=== PATIENT | male | born 1935 | race Caucasian/White ===

== ENCOUNTER 2021-07-21 11:20 | Inpatient (IN) | payer OTHER ==
[~2021-07-21] VITALS: Ht 167.6 cm; Wt 124.3 kg
--- NOTE | ~2021-07-21 | D ---
[facility] [place] [address] DISCHARGE SUMMARY Name: JOSE SCHWARTZ Room #: 527B-B [facility] IN M.R.#: [id number] Admission: 07/21/21 Attend Phys: Compa Herrera DO Discharge: 07/29/21 Date of : 37 Report #: [id number] THIS REPORT FOR: cc: FAM - Family physician unknown FAM - Family physician unknown Compa Herrera DO ~ DATE OF SERVICE: 07/29/2021 INPATIENT PSYCHIATRIC DISCHARGE SUMMARY ATTENDING PSYCHIATRIST: Compa Herrera DO CASE BRIEFER: Tez Mars MD DISCHARGE DIAGNOSES: Major depressive disorder severe ____ improved, mild neurocognitive disorder. Dysphagia with rita aspiration. MEDICAL COMORBIDITIES: Numerous including morbid obesity, hypertension, diabetes mellitus, lower extremity edema, history of paroxysmal atrial fibrillation, history of seizure, resting tremor, groin candidiasis. The patient is discharging to [facility]. Psychiatric and medical care per receiving facility. DISCHARGE DIET: Regular. The patient's family has declined dysphagia intervention in favor of quality of life. ACTIVITY LEVEL: As tolerated. The patient requires 24-hour assistance. DISCHARGE LABORATORY DATA: This admission on 07/25, white count 8.6, H and H 10.3 and 31.2, platelet count 193. Again electrolytes from 07/25, sodium 142, potassium 4.7, chloride 105, bicarbonate 29, anion gap 8, BUN 36, creatinine 1.0, estimated GFR 58, glucose 222. His hemoglobin A1c high at 10.4 on 07/22, calcium 8.6, phosphorus 3.5, magnesium 1.9, AST 14, ALT 23, alkaline phosphatase 90, albumin 2.7. Triglycerides 149, cholesterol 118, LDL 39, HDL 50. TSH 2.876. Folate 18.3. B12 fairly normal at 540. Urinalysis this admission, trace ketones, 3+ glucose as expected. SARS not detected ____. DISCHARGE MEDICATIONS: Digoxin 125 mcg oral daily for atrial fibrillation, terazosin ____ at bedtime for hypertension and BPH, carvedilol 12.5 mg oral twice daily with meals for hypertension, lisinopril 40 mg oral daily for hypertension, primidone 50 mg oral daily for tremor, oxcarbazepine 600 mg oral twice daily for impulse control and seizure concern, Lexapro 10 mg oral daily for depression, memantine 10 mg oral at bedtime for cognitive enhancement. Memantine was prescribed before admission at 400-500 mg oral with meals. The patient has Lantus ____ 15 units at bedtime for diabetes. He has got [address] [address] DISCHARGE SUMMARY Name: LANAJOSE Room #: 527B-B [facility] IN M.R.#: [id number] Admission: 07/21/21 Attend Phys: Compa Herrera DO Discharge: 07/29/21 Date of : 36 Report #: [id number] clotrimazole and nystatin for candidiasis in his inguinal area that should be continued up to 14 days or until resolution and if still not resolved, it should be reevaluated by physician. Vitamin D3 2000 International Units oral daily. REASON FOR ADMISSION: Back on 07/21 or so, 86-year-old obese male transferred to [place] from [facility], the patient had psychiatric consultation there. The patient had an intentional overdose, suicide attempt on aspirin. He was in assisted living and no meds were being administered to him. Family believes he had this from back when he moved into this facility some time ago. HOSPITAL COURSE: The patient was admitted to Geriatric Psychiatry Unit. Overall, the patient's mobility decreased. The patient was frequently demanding ____ at bedside. He was frankly aspirating. At family telephone meetings with his son, Vasu and daughter, Verito who stays in the area and Vasu in [place] ____ given the challenges of getting the patient to ____ dysphagia interventions. The patient is not suicidal, homicidal, felt to be stable for step-down. PHYSICAL EXAMINATION: VITAL SIGNS: Temperature 98.0, pulse is 74, respirations 20, BP 156/53. GENERAL: Large, obese male, seated in Maria G chair, frequently has a towel over his head, not sure why. It is like ____ completely covering his head. MENTAL STATUS EXAMINATION: This is a well-developed, ill-appearing male. Attention and concentration fair. Speech loud. Thought process, focused ____. Denied SI, HI, auditory or visual type hallucinations. Memory not formally tested on the day of discharge. Insight and judgment limited. Mood and affect constricted, congruent. Fund of knowledge average. Prognosis is guarded given his age of 86 and comorbidities. By: 43 41 Compa Herrera, DO /nt
[2021-07-21 20:40] VITALS: BP 137/56
--- NOTE | 2021-07-22 05:10 | NUR ---
RECEIVED REPORT FROM ED RN STEFANY, PT COVID WAS NEG. PT ARRIVED [id number] PT AAOX4, VS 137/56, P 76, R 18, T 97.7, O2 SA 97% RA RR EVEN AND NONLABORED. PT DENIES SI/HI AND PAIN. PT REPORTED FEELING DEPRESSED AND ATTEMTING OD WITH 81MG ASA, AND HE IS FEELING LIKE A BURDEN TO HIS CHILDREN. HCP Apolonia MONREAL, RADIOLOGY PHYSICIAN CONTACTED FOR CONSULT. HCP Mitul BUNCH NP CONSULTED AND ORDERS RECEIVED. PT IS W/CHAIR AND MAX ASSIST. PT HX HTN, A.FIB, PACEMAKER, DM, DEPRESSION, HYPOTHYROID, SEIZURES. FALL PRECAUTIONS PUT IN PLACE. PT HAS RASH IN GROIN AND REDNESS IN BUTTOCKS. PT UE TREMORS, PT REPORTED HE DID NOT HAVE PARKINSON HAD BEEN RULED OUT. LUNCHBOX SNACK WAS GIVEN AND SALES CLERK SUPERVISOR ASSISTED WITH FEEDING, PT REQUIRES ASSISTANCE FOR FEEDING AND SANDWICH WAS CUT INTO FOUR. CHRISTIE MONTESINOS CHARGE NURSE DANIEL CONFIRMED MEDICATION REGIMENT AND DNR AND DANIEL TO FAX DNR PAPERWORK TO [facility]. CALLED LAYNE SCHWARTZ, CALLED TWICE AND LEFT MESSAGE FOR CONSENTS. PT WILL CONTINUE TO BE MONITOR PER [facility] PROTOCOL.
[2021-07-22 06:45] LABS: CHOLESTEROL 118 mg/dL (<200); HDL CHOLESTEROL 50 mg/dL (>40); LDL CHOLESTEROL 39 mg/dL (<100); SERUM ASSESSMENT Clear; TC:HDL 2.4 Ratio (Not establshd); TRIGLYCERIDE 149 mg/dL (<150); VLDL 30 mg/dL (<40)
[2021-07-22 11:38] VITALS: BP 145/51
[2021-07-22 11:42] LABS: HEMATOCRIT 32.6 % (42.0-52.0); HEMOGLOBIN 10.6 gm/dL (14.0-18.0); MCH 29.8 pg (26.0-34.0); MCHC 32.4 g/dL (28.0-37.0); MCV 91.8 fL (80.0-100.0); RBC 3.55 mil/uL (4.50-6.00); RDW 14.2 % (10.5-14.5); WBC 8.8 thou/uL (4.0-11.0)
[2021-07-22 11:51] LABS: CREATININE 1.1 mg/dL (0.7-1.3); POTASSIUM 4.8 mmol/L (3.5-5.1)
[2021-07-22 12:21] LABS: FOLIC ACID 18.3 ng/mL (8.6-58.9)
--- NOTE | 2021-07-22 15:37 | NUR ---
RESUMMED CARE FROM OVERNIGHT SHIFT THIS AM, PATIENT DAY ROOM SITTING QUIET. PATIENT ALERT ORIENTED TO SELF HE DID NOT KNOW THE YEAR, PLACE, OR THE CURRENT PRESIDENT. PATIENT STATED TO ME" HIS MIND IS NOT TOGETHER AND HE CAN'T REMENBER". PATIENTS ABDOMEN SOFT BOWEL SOUNDS PRESENT, PATIENTS LUNGS CLEAR. PATIENT DENIES SI/HI/AH/VH AT PRESENT, PATIENT IS SOMETIMES NEEDY AT TIMES. PATIENT SAT IN GROUP BUT MINIMAL PARTICIPATION PATIENT MET WITH DR TOM AND CREDIT CHARGE AUTHORIZER. PATIENT TOOK MEDICATION WITHOUT INCIDENCE; WILL CONTINUE TO MONITOR PATIENT FOR SAFETY AND BEHAVIORS.
--- NOTE | 2021-07-22 16:02 | NUR ---
07-22-2021--1610--Call to [facility], Vasu Frankel ([phone]). He reports that his father had been residing at [facility] in a two bedroom apartment until his mother about 8 months ago. He then moved to a one bedroom at the same [place]. He stated his father fell about 8 years ago and had a brain anyursim anr was paralyzed on one side. He reports he came back "sort of" but he now has a great correction memory buy his short term memory isn't good. He reports last Monday his recliner broke and he had to rely more on his kids. Patient knows Vasus has terminal CA and he feels this is partly why he felt like he was imposing. He stated they went back to the store where they purchased the broken chair and they had one just like it but it couldn't be delivered until Monday. He reports it was "like the end of the world to him. Someone from [facility] stated they caught him taking the 81 mg aspirins and he had taken approx. 8. He went two days to [facility]. [facility] wanted to send him to [facility]. They instead sent him here. He is agreeable to a family meeting tomorrow 07-23-2021 at 1300.
[2021-07-22 16:55] LABS: URINE BILIRUBIN NEGATIVE (Negative); URINE BLOOD NEGATIVE (Negative); URINE CLARITY CLEAR; URINE COLOR YELLOW; URINE GLUCOSE-RANDOM* 3+ (Negative); URINE KETONES TRACE (Negative); URINE LEUKOCYTES-REFLEX NEGATIVE (Negative); URINE NITRITE-REFLEX NEGATIVE (Negative); URINE PROTEIN (DIPSTICK) NEGATIVE (Negative); URINE UROBILINOGEN 0.2 E.U./dl (0.2-1.0)
[2021-07-22 19:25] VITALS: BP 150/61
[2021-07-22 23:06] LABS: GLYCOHEMOGLOBIN (HGB A1C) 10.4 % (4.8-5.6)
--- NOTE | 2021-07-23 02:43 | NUR ---
PATIENT CARE WAS RESUMED AT 1900. HE WAS SITTING AT THE DINING AREA. ALERT AND ORIENTED WITH SOME FORGRTFULNESS. ABLE TO VERBALIZE HIS NEEDS.CONTINENT OF BOWEL AND BLADDER. HE DENIES PAINS AT THIS TIME. MAX ASSIT WITH TRANSFER AND [facility]ONORA-CARE. NYSTATIN CREAME APPLIED TO HIS GROIN AREAS.BS WAS HIGH AND ONETIME INSULIN WAS ADMINISTERED.LUNGS ARE CLEAR BS ACTIVE X4 QUADS. HE DENIES SI/AVH/HI. F76INTHDUT CHECK IN PLACE. BED IS LOW, LOCKED AND ALARMED. YELLOW SOCKS AND TOP ARE ON
--- NOTE | 2021-07-23 08:28 | NUR ---
New admit to [facility] with SI/depression. Hx DM, HTN. Class III obesity, BMI 44. BG poorly controlled, A1C 10.4, lipids wnl. Folate/B12 wnl. Intake fair for first 2 meals 40-50%. Add carb control to current diet order, otherwise low nutrition risk and will continue to follow at weekly team meetings.
[2021-07-23 11:06] VITALS: BP 154/66
--- NOTE | 2021-07-23 15:04 | NUR ---
Alert and orientated X4. Calm and cooperative at times, other times yelling and demanding. Does adjust behavior when reminded. Denies SI/HI. Breath sounds clear. Reg HR auscultated. Color pink with brisk capillary refill and palpable peripheal pulses. +2 non pitting edema in feet. Resistant to wearing RANDI hose but agreed to put on. Began yelling during group demanding that they be removed. Dr. Herrera agreed for them to be off. Feet elevated with recliner. Yellow urine per toilet and incontinence. Active bowel sounds over large, soft, rounded abdomen. Large soft brown stool X 2. Able to take several steps with transfering but unsteady on feet. Resting in recliner.
[2021-07-23 16:30] VITALS: BP 168/65
[2021-07-23 19:51] VITALS: BP 168/65
--- NOTE | 2021-07-23 21:27 | NUR ---
PATIENT IS MEDICATION COMPLIANT, DENIES HI/SI BUT STILL ADMITS TO SOME DEPRESSION AND ANXIETY. PATIENT AT TIMES IS DEMANDING AND DOES REQUIRE REDIRECTION. PTIENT HAS INSTEADY GAIT AND IS VERY SLOW BUT CAN MOVE FOR A SHORT DISTANCE.
[2021-07-24 07:15] VITALS: BP 142/68
[2021-07-24 07:29] VITALS: BP 142/68
--- NOTE | 2021-07-24 11:19 | NUR ---
Alert and orientated X4. Denies SI/HI and states depression is about the same. Demanding and yelling at staff, at other times sleeping in day room. Breath sounds clear. Reg HR auscultated. Color pale pink with brisk capillary refill and palpable peripheral pulses. Refusing to wear RANDI hose. Yelling that he will not wear them again. Continent of yellow urine per BSC. Active bowel sounds over large rounded abdomen. Erythema and excoritation in inguinal folds, cleaned and nystatin powder applied. Yelling that powder does not work, wants nystatin cream. Able to take few steps with walker to transfer to commode, needs supervision.
[2021-07-24 16:37] VITALS: BP 124/64
[2021-07-24 20:27] VITALS: BP 137/48
--- NOTE | 2021-07-24 22:17 | H ---
[facility] [place] [address] [place] [address] HISTORY AND PHYSICAL Name: JOSE FRANKEL Room #: 521A-A ADM IN M.R.#: [id number] Admission: 07/21/21 Attend Phys: Compa Herrera DO Discharge: Date of : 36 Report #: [id number] THIS REPORT FOR: cc: FAM - Family physician unknown FAM - Family physician unknown Compa Herrera DO ~ DATE OF SERVICE: 07/22/2021 INPATIENT PSYCHIATRIC EVALUATION ATTENDING PSYCHIATRIST: Compa Herrera DO. LOFT WORKER: Marjorie Markham and Kj Ricardo MD and his hospitalist team. SOURCES OF INFORMATION: Interview with the patient, records from [facility], Emergency Room records. His DPOA is not enacted, but is reported to be son, Vasu Frankel in [place] at [phone], his daughter, Cindy Pickett in [place], [place] at [phone]. REASON FOR ADMISSION: Sent out for an intentional overdose on aspirin. HISTORY OF PRESENT ILLNESS: An 86-year-old obese male transfered to [facility] via [facility]. The patient had had a psychiatric consultation there. It states that the patient has history of diabetes, hypertension, hypothyroidism, who presented to the ED after a suicide attempt via intentional ingestion of 8 baby aspirin. He was initially going to be medically admitted, but not medically cleared, hence still in the ED. He was alert and oriented to person, place, situation, partly to time as month and year. The patient states he took aspirin because "I was depressed because of the tremors I have, I'm a burden on my family." States that he thought about overdosing for weeks and had felt more depressed because "I can't drug anymore, so I am a burden." The patient recalled to me as he did to the examiner at [facility], he fell on the ice in and has tremors worse since. His right hand tremor is much worse than his right. He admitted that the overdose was a suicide attempt and he wanted to , but he is glad he survived. He has 2 children, they are very supportive. He feels he is a burden on people, even though no one has expressed this to him. He describes his mood over the last 2 weeks as so-so, but felt mostly depressed and has been worried about multiple medical issues. He has trouble falling and staying asleep, "as the worse part of that is my medical problems. I'd hate that I'd have to get up every hour when I'm sleeping." He thinks he gets 5-6 hours of sleep at the most. He is tired most of the time. He notes that he has to get up and use the restroom several times at night. He denied auditory or visual hallucinations. Denies [address] [place] [address] HISTORY AND PHYSICAL Name: JOSE FRANKEL Room #: 521A-A [facility] IN M.R.#: [id number] Admission: 07/21/21 Attend Phys: Compa Herrera, Discharge: Date of : 36 Report #: [id number] paranoia. Appetite is good. Denies homicidal ideation. He is not sure if he was taking Lexapro, although he thinks he was taking something, for knowledge. He says he likes the alf he lives at, but there is only 1 physician for 700 people. PAST PSYCHIATRIC HISTORY: He saw a psychiatrist many-many years ago, diagnosed with depression. No history of prior suicide attempts. No history of psychotropic medications. his home medication list was Trileptal 450 b.i.d., Lexapro 10 mg daily, melatonin 5 mg at bedtime, Namenda 10 mg at bedtime, used to be on Elavil 25 mg b.i.d., Prozac 20 mg daily. He denied past illicit alcohol use. Remote history of smoking cigarettes and of alcohol on holidays. SOCIAL HISTORY: Lives in a alf, stated "I loved it." His . Both children are supportive. HOME MEDICATIONS: Digoxin 125 mcg daily, terazosin 2 mg p.o. daily, sotalol 80 mg p.o. daily, vitamin D3 2000 international units oral daily, atorvastatin 20 mg oral b.i.d., oxcarbazepine 450 p.o. b.i.d. It does look that some of these were from 2013. More recent meds include lisinopril, pioglitazone, primidone, escitalopram, melatonin, memantine. ALLERGIES: TO ATENOLOL, HYDROCHLOROTHIAZIDE, AMLODIPINE, AND CORTISONE. The patient was diagnosed with major depressive disorder, recurrent, severe without psychosis, unspecified neurocognitive disorder. I recommended resuming Lexapro 5 mg, considering mirtazapine and psychiatric hospitalization. PAST MEDICAL HISTORY: Includes DM2, paroxysmal atrial fibrillation, obstructive sleep apnea, Parkinson's disease, seizure disorder, dyslipidemia and normocytic anemia. On 07/18/2021, sodium 139, potassium 5.1, chloride, I believe this is 102; bicarbonate 23, anion gap 9, random glucose 220, creatinine 1.2, estimated GFR 60, total protein 7.0, albumin 3.0, calcium 3.7, total bilirubin 3.1, AST 18, ALT 26, alkaline phosphatase 106. TSH 3.02. UDS negative. Digoxin level not reported. Acetaminophen negative. Salicylate 3.0. White count 5.58, H and H 10.9 and 33.0, platelet count 225. Urine is negative, nitrites negative mucus strands, rare bacteria. REVIEW OF SYSTEMS: He reported having bilateral inguinal irritation, lower extremity swelling. Otherwise, relatively clean on brief 10-point ROS. [facility] [address] [place] [address] HISTORY AND PHYSICAL Name: SESAR FRANKELERT Room #: 52- ADM IN M.R.#: [id number] Admission: 07/21/21 Attend Phys: Compa Herrera DO Discharge: Date of : 36 Report #: [id number] PHYSICAL EXAMINATION: VITAL SIGNS: Here at [facility], temperature 36.3, pulse 71, respirations 18, BP 145/51, O2 sat 94%. GENERAL: In Maria G chair in hospital gown, complaining of skin pain in his bilateral inguinal region. Laboratories, hematology, H and H 10.6 and 32.6, white count 8.8, platelets 216. Chemistry from 07/22, sodium 143, potassium 4.8, chloride 106, bicarbonate 31, anion gap 6, BUN 26, creatinine 1.1, estimated GFR 64, glucose 293, calcium 9.0. Triglycerides 149, cholesterol 118, LDL 39, HDL 50. B12 540, folate 18.3, TSH 2.876. MEDICATIONS IN THE HOSPITAL: Currently, terazosin 1 mg at bedtime, memantine 10 mg at bedtime, melatonin 22 mg at bedtime, Coreg 12.5 mg p.o. b.i.d. with meals, sotalol 80 mg daily, primidone 50 mg p.o. daily, pioglitazone 15 mg p.o. daily, oxcarbazepine 450 mg p.o. b.i.d., lisinopril 40 mg p.o. daily, Lexapro 10 mg oral daily, digoxin 125 mcg daily, vitamin D 2000 international units daily, loperamide, clonidine 0.2 mg p.o. t.i.d. p.r.n. for hypertensive urgency. Otherwise, house PRNs. MENTAL STATUS EXAMINATION: A well-developed, unkempt male, appearing his stated age. Attention fair. Concentration fair. Speech, normal rate and tone. Thought process, linear and goal directed. Thought content, focused on ameliorating his situation. Denied SI. Denied auditory, visual, or tactile hallucinations. Memory, not formally tested. There is some historical mild neurocognitive disorder. Insight and judgment limited. Fund of knowledge, at least average. FORMULATION: An 86-year-old male brought in status post intentional aspirin overdose, resides at nursing facility. DIAGNOSES: Major depressive disorder, recurrent, severe degree, Mild neurocognitive disorder. Medical comorbidities include hypertension, atrial fibrillation, status post pacemaker; history of seizures, diabetes mellitus type 2, dyslipidemia, hypothyroidism, bilateral tremors, upper extremities. He also has lower extremity swelling. PLAN: Admitted voluntarily to [facility]. We will reduce his melatonin. He is on 10 mg daily Lexapro that was increased from recommendations of [facility]. We will continue other medications he is actively on, see how his mood goes in the next couple of days. [facility] [address] [place] [address] HISTORY AND PHYSICAL Name: JOSE FRANKEL Room #: 521A-A ADM IN M.R.#: [id number] Admission: 07/21/21 Attend Phys: Compa Herrera DO Discharge: Date of : 36 Report #: [id number] Time spent on this case at least 60 minutes, greater than 50% of time reviewing records and coordination of care. He is a full code. strengths: insured, has placement weaknesses: advanced agea, multiple morbidities, poor mobility <ELECTRONICALLY SIGNED> By: Compa Herrera DO 07/24/21 2217 [id number] Compa Herrera DO /nt
--- NOTE | 2021-07-25 00:15 | NUR ---
PATIENT HAS BEEN OUT IN DAY ROOM THIS EVENING, DEMANDING AT TIMES WANTING IMMEDIATE GRATIFICATION. PATIENT IS MEDICATION COMPLIANT. PATIENT HAS BEEN CONTINENT THE LAST COUPLE OF NIGHT, CALLING AND ASKING FOR URIANL OR BEDPAN.
[2021-07-25 05:26] LABS: ABSOLUTE NEUTROPHILS 5.4 thou/uL (1.4-8.2); BASOPHILS 0.4 % (0.0-2.0); EOSINOPHILS 4.7 % (0.0-3.0); HEMATOCRIT 31.2 % (42.0-52.0); HEMOGLOBIN 10.2 gm/dL (14.0-18.0); LYMPHOCYTES 24.9 % (24.0-44.0); MCH 29.8 pg (26.0-34.0); MCHC 32.7 g/dL (28.0-37.0); MCV 91.1 fL (80.0-100.0); MONOCYTES 7.5 % (1.0-8.0); PLATELET COUNT 193 thou/uL (150-400); POLYS 62.5 % (36.0-66.0); RBC 3.42 mil/uL (4.50-6.00); RDW 14.2 % (10.5-14.5); WBC 8.6 thou/uL (4.0-11.0)
[2021-07-25 05:41] LABS: ALBUMIN 2.7 g/dL (3.4-5.0); CALCIUM 8.6 mg/dL (8.5-10.1); CREATININE 1.2 mg/dL (0.7-1.3); MAGNESIUM 1.9 mg/dL (1.8-2.4); PHOSPHORUS 3.5 mg/dL (2.5-4.9); POTASSIUM 4.7 mmol/L (3.5-5.1); TOTAL BILIRUBIN 0.1 mg/dL (0.2-1.0); TOTAL PROTEIN 6.4 g/dL (6.4-8.2)
[2021-07-25 10:40] VITALS: BP 129/45
[2021-07-25 12:48] VITALS: BP 129/45
--- NOTE | 2021-07-25 17:20 | NUR ---
Assumed care from overnight shift this am. Client was in activity area, and expressed need to be toileted before breakfast. Client stated that he needed to both urinate and defecate at this time. Client was assisted by this staff, and supervisor wool shearing staff to commode. Client presented irritable at this time, and stated that he was unable to help with his toileting needs when asked to hold on to sides of commode or chair as client is two person assist. Per previous report of client's facility and family, client is ambulatory, but client has been uncooperative with cares, and relies heavily on staff despite being able to do ADLs with moderate independence. Client proceeded to stay on toilet, and requested both commode and urinal at this time. Client was given both, and requested that staff hold urinal. Client was encouraged to hold urinal by himself as client does not have insufficiency with hand strength. Client did this at this time. Client procceeded to stay on commode for over ten minutes, but could not defacate. 200 mL of urine were noted for output. Client then yelled at staff to "get me off of here before I get up- I'll get up I swear" although staff was present. Staff assisted client to wipe private area and applied barrier cream to backside as redness was noted. During assessment, client presented alert to self and situation. Client did not voice any suicidal or homicidal ideation, and did not voice any visual or audio hallucinations. Client denied any depression and anxiety. Lung sounds were clear and bowel sounds present, though oxygen was at 95% upon recheck by FARROWING WORKER, which appears to be baseline for client per previous checks. No difficulty breathing noted. Client was then taken to activity area again. Client stayed in acitivty area for thirty minutes to eat breakfast before requesting to be toileted again. Client yelled "you better take me or I'll pee in my pants" "take me now." Client was encouraged to communicate needs, but to not yell at staff. Client once again threatened to get out of chair and go himself despite staff taking him to toilet but needing to take breaks off of chair first. Client was toileted, had a BM, and urinated slightly. Barrier cream applied to buttocks. Client given one time stat order of lantus [address] Murray along with regular insulin due to elevated glucose at 314 in am. Client refused newly prescribed clotri cream at this time, as he had other creams for itching. Client once again toileted before dinner. During this time, client refused to hold urinal, and urinated on floor. Client was once again encouraged to make needs known at this time. Client also had a BM at this time. During dinner, client stated that he did not like his dinner. Client had not filled out a meal ticket request earlier in the day, so dinner could not be changed per dietary as told to this staff by dietary. Client was encouraged to eat his food, and given glucerna as supplement. No further concerns at this time. Will continue to monitor for safety and psychiatric concerns.
[2021-07-25 20:00] VITALS: BP 132/37
--- NOTE | 2021-07-25 23:39 | NUR ---
AT ONSET OF TANK COOPER PT WAS RESTING IN KENNA CHAIR IN DAY ROOM. THIS SHIFT PT WAS ALERT AND ORIENTED TO SELF, SITUATION, AND PLACE. PT CAN BE FORGETFUL AND ASK FOR THINGS TWICE. PT WAS COMPLIANT WITH VITAL SIGNS AND MEDICATIONS. PT IS DEMANDING WITH CARES AND IS DEPENDENT ON STAFF. PT ASKS FOR ASSISTANCE FOR TASKS HE COULD DO INDEPENDENTLY. FOR EXAMPLE, PT REQUESTED STAFF HOLD HIS WATER TO HIS LIPS FOR HIM, BUT PT IS CAPABLE OF HOLDING HIS CUP HIMSELF. PT DENIED SI AND HI. PT STATED HIS DEPRESSION IS A LITTLE BETTER COMPARED TO WHEN HE WAS ADMITTED. FALL PRECAUTIONS ARE IN PLACE.
[2021-07-26 09:35] VITALS: BP 140/47
--- NOTE | 2021-07-26 12:36 | NUR ---
07-26-2021--1200--Call from patient's daughter Cindy ([phone]). Advised her we were having a family meeting on 07-28-2021 @ 1130. Cindy stated after talking to us the other day she called [facility] (called [facility]) to talk about her dad going there. After we hung up I got a call from Ziggy at [employer] ([phone]--FAX) requesting some information re: patient. I sent him the H&P and a few notes. He stated he wanted to see if he was going to be appropriate for them. Info faxed.
[2021-07-26 16:50] VITALS: BP 140/47
--- NOTE | 2021-07-26 18:45 | NUR ---
Patient care resummed, patient in bed apon rounds lying supine. Patient noted to have skin breakdown on the L&R side groin area, 2+pitting edema noted bilateral feet/ankles. Bottom noted to be a little red , bruise on L arm, bruise on abdomen. Patient denied SI/HI/AVH/Pain but admitts to having some anxiety. Patient refused dawn hose this morning. Patient recieved a shower this afternoon. Patient A&O*2/3, lungs clear and unlabored, abdomen soft and bowel sounds are present. Patient meal and medication compliant but noted not willing to take medication unless crushed. Patient noted having some difficultly with soild foods, coughing with each bite. Speech eval was given and patient no changes were given to diet due to consult with and the DPOA with the patients ability to comply with changes. Patient is demanding with staff, yelling at staff and demanding that staff do things for him. Patient is on fall precautions, will continue to monitor for safety and behaviors.
[2021-07-26 19:00] VITALS: BP 156/53
[2021-07-26 20:40] VITALS: BP 156/53
--- NOTE | 2021-07-27 02:10 | NUR ---
PATIENT WAS SITTING UP IN DINING ROOM AT A TABLE WHEN ASSUMED CARE OF PATIENT. PATIENT WAS TAKEN TO HIS ROOM AT 1999 TO USE BSC AND PATIENT INCONTINENCE CARES DONE. PATIENT HAS RED ITCHING/BURNING RASH THAT LOOKS LIKE FUNGAL/DREW. PT HAD SHOWER TODAY. AREA OF GROIN AND PUBIC AREA CLEANED AND NYSTATIN CREAM AND POWDER AND FUNGAL CREAM APPLIED. PATIENT HAD 2 ITCHING AREAS ON FRONT OF CHEST AT SHOULDERS AND CREAM APPLIED THERE. NO CHANGE IN THE SKIN THERE. LOTIONED PATIENT'S LEGS AND FEET WELL. PATIENT WITH 3+ PEDAL AND ANKLE EDEMAL. SKIN TAUNT. PATIENT POSITIONED FOR COMFORT IN BED. PT TOOK PILLS WHOLE WITH APPLESAUCE AND DRANK ICE WATER ALSO. PT HAS BEEN RESTING IN BED ALL NIGHT EXCEPT UP TO USE THE BSC NEEDED. BED IN LOW POSITION, BED ALARM ON. ROUTINE ROUNDS TO ASSESS SAFETY AND STATUS OF PATIENT.
--- NOTE | 2021-07-27 05:16 | NUR ---
PATIENT WITH PINK/LIGHT RED SKIN IRRITATION AT BILATERAL GROIN AND PENIS/SCROTAL DISCOLORATION OF PINKENED SKIN FROM NORMAL COLOR OF REST OF SKIN. PT USES URINAL FOR VOIDING AND MISSES URINAL AND DISCOLORATION MAY BE FROM INCONTINENCE. AREA SORE PER PATIENT. FUNGAL RX CREAM APPLIED AND BARRIER CREAMS APPLIED WITH EACH INCONTINENCE CARE DONE. AREA FIRST CLEANED WITH SOAP AND WATER AND PATTED DRY BEFORE CREAM ADDED. LEFT AREAS BERNABE WHILE SLEEPING TONIGHT. CONTINUING TO MONITOR.
[2021-07-27 10:11] VITALS: BP 145/43
--- NOTE | 2021-07-27 10:46 | NUR ---
Nutrition followup: Received consult related to food preferences. Pt overall intake is good, 50-100% of meals. Noted ST has rec Mech soft with honey thick liquids but pt refusing dysphagia interventions and family requests no restrictions understanding consequences as he is aspirating. Prefer quality of life. Spoke with pt to obtain further food preferences which he provided. Encouraged staff to assist daily with meal ordering. RD placed orders for today. Significant hyperglycemia is present-on carb controlled diet and metformin, glargine, SSI. Continue low nutrition risk.
--- NOTE | 2021-07-27 13:57 | NUR ---
WOUND CONSULT; THE PATIENT WAS ASSESSED. THE GROIN AREA WAS ASSESSED BILATERALLY. THE GROIN HAS AN ODOR CONSISTANT WITH A FUNGAL RASH. RECOMMENDATIONS; CLEANSE GROIN 2 TIMES DAILY WITH WARM SOAPY WATER, DRY COMPLETLY. DISCUSSED WITH JONATHAN
--- NOTE | 2021-07-27 17:28 | NUR ---
PATIENT CARE ASSUME AT 0700 - HAS BEEN IN [place] [facility] ALL DAY WITH TOWEL OVER HIS HEAD. MAKES NEEDS KNOWN BY YELLING OUT AND VERY INPATIENT AND DEMANDING AT TIMES. RESPONDS WELL TO REDIRECTION. ASSISTED MULTIPLE TIMES TO UTILIZE COMMODE. ALWAYS MISSES WITH URINE THOUGH. HAD LARGE B OWEL MOVEMENT EARLIER IN AFTERNOON. COMPLIANT WITH MEDICATIONS - TAKES SLOWLY WHOLE WITH PUDDING. PATIENT DISATISFIED WITH BREAKFAST AND MADE IT KNOWN. ADJUSTED TO HIS INSTRUCTIONS IN SYSTEM. PATIENT 2 PERSON ASSIST WITH ADLS - CAN STAND AND PIVOT WITH INSTRUCTIONS. DENIES S/I OR H/I - SLOW TO RESPOND TO ASSESSMENT QUESTIONS ADDRESSED TO HIM. ASSESSED BUTTOCK AND SCROTUM AREA AND PANIA UNDER ABDOMINAL AREA. REDDENED AREA NOTED. WOUND CARE ALERTED AND ASSESSED WELL. STATED NO WOUND OBVIOUS. PATIENT HAS MULTIPLE OINTMENTS AND MEDICATIONS BEING APPLIED DURING DAY AND AFTER CHANGES. TOLERATES WELL. BUTTOCK ANDS SCROTUM ARE REDDENED BUT INTACT. OINTMENT APPLIED UNDER ABDOMINAL AREA PER INSTRUCTIONS. PATIENT VERY LIMITED ON HOW MUCH HE PARTICIPATES IN ASSISTING WITH ADL CARES. TOTAL CARE NEEDED. WILL CONTINUE TO MONITOR PATIENT FOR SAFETY AND TO ADDRESS ANY FURTHER CONCERNS OR CHANGES IN BEHAVIOR ACCORDINGLY.
[2021-07-27 20:05] VITALS: BP 145/54
--- NOTE | 2021-07-27 21:32 | NUR ---
PATIENT IS STILL DEMANDING AND WANTS IMMEDIATE GRATIFICATION. PATIENT DOES NOT PARTICIPATE IN HIS CARE. WHEN PATIENT FIRST CAME IN HE WOULD WALK A LITTLE AND NOW HE WILL NOT EVEN TRY. PATIENT IS IRRITABLE WHEN PEOPLE CAN NOT GET TO HIM RIGHT AWAY.
[2021-07-28 11:21] VITALS: BP 158/65
--- NOTE | 2021-07-28 18:18 | NUR ---
Assumed pt care at 0700. Pt was alert and oriented x4. Assessments completed, vss. Denies si/hi, denies pain. Took meds whole in apple sauce, no difficulty noted. Ambulates with a Maria G chair. Pt is a moderate assist with care. Pt refused to assist with his care. Pt requires more reassurance with care. Pt was irritable this shift, but was redirected. Continent of bowel and bladder this shift. Makes needs known to staff. Pt is a high fall risk. Fall precaution in place. At this time pt is in the day room. Will continue to monitor.
[2021-07-28 19:20] VITALS: BP 127/49
--- NOTE | 2021-07-29 00:04 | NUR ---
PATIENT OUT IN DAY ROOM THIS EVENING. PATIENT IS DEMANDING, NEEDY AND BECAUSE ANOTHER PATIENT GOT EYE DROPS, HE NOW BELIEVES HE NEEDS EYEDROPS. PATIENT COMPLIANT WITH HS MEDICATION.
[2021-07-29] MEDS ORDERED: HYTRIN 1 MG CAP1 MG PO (10:20)
[2021-07-29] MEDS ORDERED: DIGOXIN125 MCG PO (10:20)
[2021-07-29] MEDS ORDERED: CARVEDILOL12.5 MG PO (10:21)
[2021-07-29] MEDS ORDERED: OXCARBAZEPINE300 MG PO (10:22)
[2021-07-29] MEDS ORDERED: PRIMIDONE50 MG PO (10:22)
[2021-07-29] MEDS ORDERED: BENAZEPRIL HCL40 MG PO (10:22)
[2021-07-29] MEDS ORDERED: NAMENDA 5 MG TAB5 M1 PO (10:23)
[2021-07-29] MEDS ORDERED: LEXAPRO 10 MG T10 M1 PO (10:23)
[2021-07-29] MEDS ORDERED: LANTUS SUBQ (10:24)
[2021-07-29] MEDS ORDERED: METFORMIN HCL500 MG PO (10:24)
[2021-07-29] MEDS ORDERED: CLOTRIMAZOLE 1%15 G1 TOP (10:36)
[2021-07-29] MEDS ORDERED: NYAMYC15 GM TOP (10:37)
[2021-07-29] MEDS ORDERED: NYSTATIN-TRIAMC15 GM TOP (10:39)
[2021-07-29] MEDS ORDERED: VITAMIN D325 MC2 PO (10:40)
[2021-07-29 11:09] VITALS: BP 146/53
[2021-07-29 11:12] VITALS: BP 146/53
--- NOTE | 2021-07-29 11:21 | NUR ---
Patient care resummed, patient was up and in the day room upon rounds. Patient was meal and medication compliant today. Patient VS are as follows BP:146/53, P:69, R:17, T:97.9, O2: 93% on room air. Patient denies SI/HI/AVH/Pain/Depression and anxiety. Patiet presented to [facility] sm[facility] and excited to be discharged today. Patient was demanding and yelling out for help after breakfast stating he need help with going to the restroom. Patient was assisted with needs. Patient has active rash on Left and Right side of groin and wound care has been notified, as well as 2+ pitting edema to bilateral ankles/feet. Patient has bruise to Right forearm *2. Patient is being discharged today back to [facility] at 1100. Will continue to monitor patient for safety and behaviors, fall preventions are in place.
== END 2021-07-29 11:50 | DRG 885 ==
LOC: SBH → EDBD 21:59 → SBH 21:59
PROVIDERS: Internal Medicine; Nurse Practitioner; ADMIT Psychiatry & Neurology Psychiatry; ATTEND Psychiatry & Neurology Psychiatry
DX: F32.2 Major depressive disorder, single episode, severe without psychotic features (principal); T14.91XA Suicide attempt, initial encounter; E11.9 Type 2 diabetes mellitus without complications; T39.012A Poisoning by aspirin, intentional self-harm, initial encounter; Z20.822 Contact with and (suspected) exposure to COVID-19; I10 Essential (primary) hypertension; E03.9 Hypothyroidism, unspecified; I48.0 Paroxysmal atrial fibrillation; E78.5 Hyperlipidemia, unspecified; F03.90 Unspecified dementia, unspecified severity, without behavioral disturbance, psychotic disturbance, mood disturbance, and anxiety; G40.409 Other generalized epilepsy and epileptic syndromes, not intractable, without status epilepticus; Z66 Do not resuscitate; G25.0 Essential tremor; Z88.8 Allergy status to other drugs, medicaments and biological substances; Z86.73 Personal history of transient ischemic attack (TIA), and cerebral infarction without residual deficits; Z95.0 Presence of cardiac pacemaker; Y92.89 Other specified places as the place of occurrence of the external cause; Z23 Encounter for immunization; X83.8XXA Intentional self-harm by other specified means, initial encounter; Y93.89 Activity, other specified; Y99.8 Other external cause status
CPT/HCPCS: 10880